=== PATIENT | female | born 1970 | race Caucasian/White ===

== ENCOUNTER → 2016-12-26 | Outpatient (POV) ==
[2013-04-04 09:11] VITALS: TEMP 98.1; BMI 36.6
== END ==
LOC: OUTPT 00:01
PROVIDERS: ATTEND Otolaryngology
DX: H91.90 Unspecified hearing loss, unspecified ear (principal)
CPT/HCPCS: 92557; 92567

== ENCOUNTER → 2017-02-14 | Outpatient (POV) | payer OTHER ==
[2013-04-04 09:11] VITALS: TEMP 98.1; BMI 36.6
== END ==
LOC: OUTPT 00:01
PROVIDERS: ATTEND Otolaryngology
DX: H72.91 Unspecified perforation of tympanic membrane, right ear (principal)
CPT/HCPCS: 92557; 92567

== ENCOUNTER 2017-02-28 00:01 | Outpatient (POV) ==
[2013-04-04 09:11] VITALS: TEMP 98.1; BMI 36.6
== END 2017-02-28 00:02 ==
LOC: OUTPT 00:01
PROVIDERS: ATTEND Otolaryngology
DX: H72.91 Unspecified perforation of tympanic membrane, right ear (principal)
CPT/HCPCS: 92557; 92567

== ENCOUNTER → 2017-04-03 | Outpatient (POV) ==
[2013-04-04 09:11] VITALS: TEMP 98.1; BMI 36.6
== END ==
LOC: OUTPT 00:01
PROVIDERS: ATTEND Otolaryngology
DX: H91.90 Unspecified hearing loss, unspecified ear (principal)
CPT/HCPCS: 92553; 92567

== ENCOUNTER 2017-08-09 15:13 | Emergency (ER) | payer OTHER ==
[2017-08-09 15:25] VITALS: BP 167/83; TEMP 98.3; BMI 40.2
--- NOTE | 2017-08-09 16:28 | ED.PDOC ---
General ED Provider: Dr. MARIAMA HERNANDEZ Chief Complaint: Knee Pain/Injury Stated Complaint: right knee pain atraumatic Time Seen by Physician: 15:15 (does not recall trauma, insect bite or other associated injury) Mode of Arrival: Walk-In Information Source: Patient Exam Limitations: No limitations Primary Care Provider: ROHAN LR Nursing and Triage Documentation Reviewed and Agree: Yes Musculoskeletal Complaint Exam - Knee Pain Complaint/Exam Mechanism of Injury: Reports: No known trauma Onset/Duration: 1 day Symptoms Are: Still present Initial Severity: Mild Current Severity: Mild Location: Reports: Discrete Character: Reports: Aching Alleviating: Reports: Rest, Position Aggravating: Reports: Movement, Weight bearing, Prolonged standing Associated Signs and Symptoms: Denies: Swelling, Redness, Bruising, Fever, Weakness, Numbness, Tingling Able to Bear Weight: Yes Septic Arthritis Risk Factors: Reports: None Gout Risk Factors: Reports: None Knee Findings: Absent: Swelling, Ecchymosis, Abnormal contour, Rotation, Ligamentous instability, Laceration, Erythema, Warmth, Blisters, Other joint pain, Foreign body, Limited range of motion, Effusion Shu Test Positive: No Yuan Test Positive: No Differential Diagnoses: Closed Fracture, Sprain, Strain Review of Systems - Review Of Systems Constitutional: Reports: No symptoms Eyes: Reports: No symptoms Ears, Nose, Mouth, Throat: Reports: No symptoms Respiratory: Reports: No symptoms Cardiac: Reports: No symptoms GI: Reports: No symptoms : Reports: No symptoms Musculoskeletal: Reports: Joint pain (right knee) Skin: Reports: No symptoms Neurological: Reports: No symptoms Endocrine: Reports: No symptoms Hematologic/Lymphatic: Reports: No symptoms All Other Systems: Reviewed and Negative Past Medical History - Past Medical History Previously Healthy: Yes Endocrine: Reports: None Cardiovascular: Reports: None Respiratory: Reports: None Hematological: Reports: None Gastrointestinal: Reports: None Genitourinary: Reports: None Neuro/Psych: Reports: None Musculoskeletal: Reports: None Cancer: Reports: None Last Menstrual Period: first july - Surgical History General Surgical History: Reports: None - Family History Family History: Reports: None - Social History Smoking Status: Never smoker Hx Substance Use: No Alcohol Screening: None Physical Exam - Physical Exam Appearance: Well-appearing, No pain distress, Well-nourished Eyes: NIR, EOMI, Conjunctiva clear ENT: Ears normal, Nose normal, Oropharynx normal Respiratory: Airway patent, Breath sounds clear, Breath sounds equal, Respirations nonlabored Cardiovascular: RRR, Pulses normal, No rub, No murmur GI/: Soft, Nontender, No masses, Bowel sounds normal, No Organomegaly Musculoskeletal: Normal strength, ROM intact, No edema, No calf tenderness Skin: Warm, Dry, Normal color Neurological: Sensation intact, Motor intact, Reflexes intact, Cranial nerves intact, Alert, Oriented Psychiatric: Affect appropriate, Mood appropriate Interpretation - Radiology Interpretation Radiology Interpretation By: Radiologist Radiology Results: No acute changes Critical Care Note - Critical Care Note Total Time (mins): 0 Course - Course Orders, Labs, Meds: Orders Category Date Time Status KNEE, RIGHT 4 VIEWS Stat RADS 08/09/17 15:48 Taken Vital Signs: Temp Pulse Resp BP Pulse Ox 08/09/17 15:15 98.3 F 73 20 167/83 H 97 Departure - Departure Time of Disposition: 16:28 Disposition: HOME SELF-CARE Discharge Problem: Knee pain Instructions: Knee Pain (ED) Condition: Good Pt referred to PMD for follow-up: Yes Additional Instructions: Please call your Family Physician as soon as possible to schedule a follow-up appointment. Allergies/Adverse Reactions: Allergies No Known Allergies Allergy (Unverified 09/26/16 09:16) Home Medications: Ambulatory Orders Atorvastatin Calcium 20 mg PO DAILY 08/29/16 Beclomethasone Dipropionate [Qvar] 8.7 gm IH BID 08/29/16 Insulin Detemir [Levemir] 35 unit SQ DAILY vial 08/29/16 Insulin Lispro [Humalog] 15 unit SQ TID 08/29/16 Montelukast Sodium 10 mg PO DAILY 08/29/16 Pantoprazole Sodium 40 mg PO DAILY 08/29/16 Ranolazine [Ranexa] 1,000 mg PO DAILY 06/06/17
--- NOTE | 2017-08-09 16:30 | DI ---
Exam: Right knee four view HISTORY: Right knee pain Findings / Impression: No significant bony abnormality. Question small joint effusion, nonspecific. No peripheral soft tissue abnormality is seen.
== END 2017-08-09 16:39 | disposition home or self-care (01) ==
LOC: ED 15:13
DX: M25.561 Pain in right knee (principal)
CPT/HCPCS: 99283

== ENCOUNTER → 2017-09-25 | Outpatient (POV) | payer OTHER ==
[2013-04-04 09:11] VITALS: TEMP 98.1
== END ==
LOC: OUTPT 00:01
PROVIDERS: ATTEND Otolaryngology
DX: H91.90 Unspecified hearing loss, unspecified ear (principal)
CPT/HCPCS: 92557; 92567

== ENCOUNTER 2018-01-23 13:11 | Outpatient (POV) ==
[2013-04-04 09:11] VITALS: TEMP 98.1
== END 2018-01-23 17:00 ==
LOC: OUTPT 13:11
PROVIDERS: ATTEND Otolaryngology
DX: H91.90 Unspecified hearing loss, unspecified ear (principal)

== ENCOUNTER 2019-06-18 14:08 | Outpatient (CLI) ==
[2013-04-04 09:11] VITALS: TEMP 98.1
--- NOTE | 2019-06-18 15:22 | DI ---
EXAM: Three views of the right wrist. History: Right wrist pain. Findings: No acute fracture or dislocation. No abnormal calcifications or radiopaque foreign bodies . Joint spaces are preserved. Impression: Unremarkable exam
== END 2019-06-18 14:09 | disposition home or self-care (01) ==
LOC: RAD 14:08
PROVIDERS: ATTEND Family Medicine
DX: M25.531 Pain in right wrist (principal)